=== PATIENT | female | born 1960 | race African-American/Black ===

== ENCOUNTER 2017-02-02 07:47 | Emergency (ER) | payer OTHER ==
[~2017-02-02] VITALS: Ht 160 cm; Wt 93.1 kg
[~2017-02-02 07:47] MED LIST: ASPIRIN81 M2 PO; CARVEDILOL3.125 MG PO; FUROSEMIDE40 MG PO; LASIX40 MG PO; LISINOPRIL10 MG PO
[2017-02-02 07:53] VITALS: BP 157/109
[2017-02-02] MEDS ORDERED: NAPROSYN500 MG PO (08:37)
[2017-02-02] MEDS ORDERED: FLEXERIL10 MG PO (08:37)
== END 2017-02-02 09:22 | disposition home or self-care (01) ==
LOC: EME 07:47
DX: S16.1XXA Strain of muscle, fascia and tendon at neck level, initial encounter (principal); S39.012A Strain of muscle, fascia and tendon of lower back, initial encounter; S76.012A Strain of muscle, fascia and tendon of left hip, initial encounter; S76.011A Strain of muscle, fascia and tendon of right hip, initial encounter; V43.52XA Car driver injured in collision with other type car in traffic accident, initial encounter; I10 Essential (primary) hypertension; F17.200 Nicotine dependence, unspecified, uncomplicated; Z79.82 Long term (current) use of aspirin
CPT/HCPCS: 99281; 99283